=== PATIENT | female | born 1995 | race Hispanic/Latino ===

== ENCOUNTER 2018-04-03 16:39 | Outpatient (CLI) | payer MEDICAID ==
--- NOTE | 2018-04-03 18:35 | Ultrasound Report ---
FINAL REPORT EXAM: US OB LIMITED HISTORY: well being TECHNIQUE: Limited obstetrical ultrasound PRIORS: None. FINDINGS: LMP 07/10/2017 clinical Age: 38 w 1d LMP EDC 04/16/2018 Presentation: Cephalic Activity: Monitored Cardiac motion: 129 BPM using M-mode doppler anatomy: Limited evaluation demonstrates dilatation of the ventricular system within the head consistent with hydrocephalus. Amniotic Fluid Volume: Adequate WILLIE is 16.5 cm IMPRESSION: Single intrauterine viable with an approximate age of 38 weeks 1 days. Dilatation of the ventricular system within the head consistent with hydrocephalus
--- NOTE | 2018-04-03 18:37 | Ultrasound Report ---
FINAL REPORT EXAM: US OB BPP WO NON-STRESS HISTORY: well being TECHNIQUE: Biophysical profile obstetrical ultrasound PRIORS: None. FINDINGS: LMP 07/10/2017 clinical Age: 38 w 1 d LMP EDC 04/16/2018 Biophysical profile scoring 2 movement 2 tone 2 breathing 2 fluid 8/8 overall score Cardiac motion: 129 BPM using M-mode doppler Amniotic Fluid Volume: Adequate IMPRESSION: Single intrauterine viable with an approximate age of 38 weeks 1 days. Biophysical profile score is 8/8
== END 2018-04-03 18:50 | disposition home or self-care (01) ==
LOC: TRG 16:39
PROVIDERS: ATTEND Obstetrics & Gynecology
DX: O47.03 False labor before 37 completed weeks of gestation, third trimester (principal); O99.333 Smoking (tobacco) complicating pregnancy, third trimester; F17.210 Nicotine dependence, cigarettes, uncomplicated; Z3A.38 38 weeks gestation of pregnancy
CPT/HCPCS: 59025; 76815; 76819